=== PATIENT | female | born 1985 | race Caucasian/White ===

== ENCOUNTER 2017-05-10 12:24 | Emergency (ER) | payer MEDICAID ==
[~2017-05-10] VITALS: Ht 175.3 cm; Wt 76.0 kg
[2017-05-10] MEDS ORDERED: KETOROLAC 30 MG/1 ML ONE (12:57)
[2017-05-10] MEDS ORDERED: KETOROLAC 30 MG/1 ML IM ONE (13:00)
[2017-05-10 14:12] VITALS: BP 120/80
== END 2017-05-10 14:16 | disposition home or self-care (01) ==
LOC: ED 14:00
DX: S76.012A Strain of muscle, fascia and tendon of left hip, initial encounter (principal); W19.XXXA Unspecified fall, initial encounter; Y93.89 Activity, other specified; Y99.8 Other external cause status; Y92.009 Unspecified place in unspecified non-institutional (private) residence as the place of occurrence of the external cause
CPT/HCPCS: 73502; 96372; 99284; J1885